=== PATIENT | female | born 1985 | race Caucasian/White ===

== ENCOUNTER 2019-03-30 19:47 | Outpatient (CLI) | payer OTHER ==
[2019-03-30 21:51] VITALS: BP 112/69
--- NOTE | 2019-03-31 02:25 | PREOP HISTORY & PHYSICAL ---
DATE OF SERVICE: 03/30/2019 Physician: Renaldo Naqvi MD IDENTIFICATION: The patient is a 33-year-old 2, para 1 female who is currently 33 weeks EGA. CHIEF COMPLAINT: Hypertension. HISTORY OF PRESENT ILLNESS: The patient has been cared for at [facility]. This evening following a walk, she took her blood pressure at home and was running in the 150s/90s. For this reason, she presented to us here at [facility]. She currently lives in [place] and this was convenient for her. She denies any headache, spots in front of her eyes or any other neurologic symptoms. She does have a history of having preeclampsia with her first for which she had a done at 37 weeks. She also has a history of having a fibroid, as well as gestational diabetes. PAST MEDICAL HISTORY: Positive for gestational diabetes. PAST SURGICAL HISTORY: section x1. ALLERGIES: NONE KNOWN. CURRENT MEDICATIONS 1. Baby aspirin daily. 2. Metformin. 3. vitamins. HABITS: The patient denies use of alcohol, tobacco, street or addictive drugs. 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 PHYSICAL EXAMINATION GENERAL: Well-developed, well-nourished, obese female who is in no acute distress. VITAL SIGNS: Blood pressure initially was 150/84. It was rechecked and it gradually came down over time. The last two blood pressures were 132/69 and 112/69. HEENT: Pupils are equal, round. Extraocular muscles are intact. Thyroid is not palpably enlarged. HEART: Regular rate and rhythm without murmurs. LUNGS: Lung arana are clear without rales or wheezes. ABDOMEN: Gravid, Soft, nontender. There is no CVA tenderness noted at this time. LABORATORY DATA: Laboratory drawn at [facility] on the at 4 o'clock in the afternoon showed a hematocrit of 34.1, platelets were 248. Her uric acid was 3.7. Her protein creatinine ratio was 0.1. Her AST was 17. IMPRESSION 1. A 33-year-old G2, P1, previous section. 2. Gestational diabetes. 3. Known fibroid. 4. History of preeclampsia requiring section. PLAN: At this particular time, her blood pressures have normalized. She does not show signs of gestational hypertension or preeclampsia just yet. This potentially could change in the future. We will allow her to go home. She is to follow up with her OB doctor at [facility]. Should her blood pressures continued to rise, she should present sooner. I have informed her that if her blood pressure is elevated, she should wait at least half an hour, recheck and see if it comes down. If it does not, then she should seek medical evaluation. TD: 03/30/2019 21:30 [email or web address]
--- NOTE | 2019-04-11 11:58 | PROCEDURE REPORT ---
- HPI Diagnosis/Indication for NST: Gestational Hypertension Current EDU 05/18/19 Gestation 33 Weeks and 0 Days 2 Para 1 Vital Signs Temperature 37.1 C 03/30/19 20:09 Heart Rate 89 03/30/19 20:09 Respiratory Rate 20 03/30/19 20:09 Blood Pressure 140/74 H 03/30/19 20:09 O2 Saturation 100 03/30/19 20:09 Temperature 37.1 C 03/30/19 20:15 Heart Rate 92 03/30/19 21:30 Respiratory Rate 18 03/30/19 21:30 Blood Pressure 112/69 03/30/19 21:30 O2 Saturation 100 03/30/19 20:15 - NST Procedure NST Procedure Start Date 03/30/19 Start Time 20:03 Stop Time 21:10 Vibroacoustic Stimulation Used No Reactive NST. Cat I - Results and Plan Findings/Impression: Pt does not currently have GTN or PreE. Followup with her MFM in [place]
== END 2019-03-30 21:30 | disposition home or self-care (01) ==
LOC: WFO 19:47 → FBP 19:48 → WFO 21:30
PROVIDERS: ATTEND Obstetrics & Gynecology
DX: O26.893 Other specified pregnancy related conditions, third trimester (principal); R03.0 Elevated blood-pressure reading, without diagnosis of hypertension; Z3A.33 33 weeks gestation of pregnancy; O24.415 Gestational diabetes mellitus in pregnancy, controlled by oral hypoglycemic drugs; O34.219 Maternal care for unspecified type scar from previous cesarean delivery; O99.213 Obesity complicating pregnancy, third trimester; E66.9 Obesity, unspecified; O34.13 Maternal care for benign tumor of corpus uteri, third trimester; D25.9 Leiomyoma of uterus, unspecified; Z79.82 Long term (current) use of aspirin; Z87.898 Personal history of other specified conditions
CPT/HCPCS: 59025; 99213

== ENCOUNTER 2019-04-24 13:34 | Outpatient (CLI) | payer OTHER ==
[2019-04-24 15:07] LABS: BASOPHILS % (AUTO) 0.1 %; EOSINOPHILS # (AUTO) 0.1 10^3/uL (0.0-0.7); EOSINOPHILS % (AUTO) 0.8 %; HGB - HEMOGLOBIN 11.6 g/dL (12.0-16.0); LYMPHOCYTES # (AUTO) 2.1 10^3/uL (1.5-3.5); LYMPHOCYTES % (AUTO) 28.2 %; MEAN CORPUSCULAR HEMOGLOBIN 29.8 pg (27.0-31.0); MEAN CORPUSCULAR HGB CONC 32.5 g/dL (32.0-36.0); MEAN CORPUSCULAR VOLUME 91.8 fL (81.0-99.0); MONOCYTES # (AUTO) 0.5 10^3/uL (0.0-1.0); NEUTROPHILS # (AUTO) 4.9 10^3/uL (1.5-6.6); NEUTROPHILS % (AUTO) 64.5 %; PLT - PLATELET COUNT 209 10^3/uL (130-450); RED BLOOD COUNT 3.89 10^6/uL (4.20-5.40); RED CELL DISTRIBUTION WIDTH 14.1 % (12.0-15.0); WHITE BLOOD COUNT 7.5 x10^3/uL (4.8-10.8)
[2019-04-24 15:21] LABS: CREATININE 0.4 mg/dL (0.4-1.0); URIC ACID 4.3 mg/dL (2.6-7.2)
[2019-04-24 16:02] VITALS: BP 126/67
--- NOTE | 2019-04-24 16:45 | PROVIDER PROGRESS NOTE ---
- HPI Chief Complaint: Other (Patient is a 33-year-old G2, P1 at 36 weeks 4 weeks days estimated gestational age with a complicated by history of preeclampsia/current gestational hypertension and prior . Followed by Dr. CASTAÑEDA of [place] [facility] in [place]. She was admitted at 33 weeks to [facility] in [place] for gestational hypertension with nonreactive NST. She was diagnosed with mild gestational hypertension/preeclampsia. She is not on any antihypertensives. She is scheduled for repeat at 37 weeks. She had been checking blood pressures at home. She had an isolated severe range SBP in the 160s. It was normal on repeat. She had mild headache earlier today. After evaluation was completed today, she did note some mild vision changes that have since resolved. Denies current headache/vision change/right upper quadrant pain. Endorses movement. Denies loss of fluid/vaginal bleeding/contractions. She is here for preeclampsia evaluation.) Current : Current EDU 05/18/19 Gestation 36 Weeks and 4 Days 2 Para 1 Vital Signs Temperature 97.9 F 04/24/19 13:46 Heart Rate 108 H 04/24/19 13:46 Respiratory Rate 20 04/24/19 13:46 Blood Pressure 138/93 H 04/24/19 13:46 O2 Saturation 98 04/24/19 13:46 Temperature 97.9 F 04/24/19 13:46 Heart Rate 98 04/24/19 15:45 Respiratory Rate 20 04/24/19 13:46 Blood Pressure 126/67 04/24/19 16:00 O2 Saturation 98 04/24/19 13:46 - Exam General: No apparent distress CV regular rate and rhythm Respiratory clear to auscultation bilaterally Psych: Appropriate affect Neuro: Alert and oriented normal gait and coordination Abdomen: Gravid soft nontender nondistended no right upper quadrant tenderness - Procedures OB Procedure Performed: NST Diagnosis/Indication for NST: Gestational Hypertension NST Procedure: NST Procedure Start Time 20:03 Stop Time 21:10 EFM 140 moderate variability 15 x 15 accelerations no decelerations [place]: Quiet Category 1 tracing Service Date of procedure: 04/24/19 Procedure Details: 33-year-old G2, P1 at 36 weeks 4 days estimated gestational age with history of preeclampsia here for gestational hypertension evaluation and history of prior . Gestational hypertension: Isolated severe range SBP at home -Blood pressure is within normal range triage. Isolated SBP in the 140s. Otherwise blood pressures have been 120s to 130s over 70s to 80s -PIH labs within normal limits -Denies PIH symptoms well-being: Category 1 tracing Reviewed warning signs and indications for return to triage. Patient voiced clear understanding. Discharge to home.
== END 2019-04-24 16:37 | disposition home or self-care (01) ==
LOC: WFO 13:34 → FBP 13:35 → WFO 16:37
PROVIDERS: ATTEND Obstetrics & Gynecology
DX: O13.3 Gestational [pregnancy-induced] hypertension without significant proteinuria, third trimester (principal); O34.219 Maternal care for unspecified type scar from previous cesarean delivery; R51 Headache; Z3A.36 36 weeks gestation of pregnancy
CPT/HCPCS: 36415; 82565; 83615; 84450; 84550; 85025; 99213